=== PATIENT | male | born 1945 | race Caucasian/White ===

== ENCOUNTER → 2017-02-17 | Outpatient (CLI) | payer OTHER, MEDICARE | LOC: LAB 15:59 | PROVIDERS: ATTEND Radiology Radiation Oncology | DX: Z85.46 Personal history of malignant neoplasm of prostate (principal) | CPT/HCPCS: 36415; 84153 ==

== ENCOUNTER → 2017-02-23 | Outpatient (CLI) | payer OTHER, MEDICARE | LOC: MMPC 09:00 | PROVIDERS: ATTEND Family Medicine | DX: I10 Essential (primary) hypertension (principal); I25.10 Atherosclerotic heart disease of native coronary artery without angina pectoris; G47.00 Insomnia, unspecified; J30.1 Allergic rhinitis due to pollen; G47.33 Obstructive sleep apnea (adult) (pediatric) | CPT/HCPCS: 99214; G0463 ==

== ENCOUNTER → 2017-06-10 | Outpatient (CLI) | payer OTHER, MEDICARE ==
--- NOTE | 2017-06-10 11:47 | DI ---
XR KNEE CMPT 4 OR MORE VWS,06/10/2017 9:18 AM: Clinical History: Right knee pain Previous Exam: None at this facility. Findings: AP standing, weightbearing, sunrise views of both knees are obtained as well as a lateral view of the right knee, and demonstrate mild loss of joint space within the medial compartments bilaterally. The surrounding soft tissues are unremarkable. There is some mild peripheral vascular disease in the reg ion of the superficial femoral artery. There is no evidence of knee joint effusion. Impression: Mild early degenerative osteoarthritis which appears to be symmetric.
== END ==
LOC: RAD 09:13
PROVIDERS: ATTEND Orthopaedic Surgery
DX: M25.561 Pain in right knee (principal); M17.11 Unilateral primary osteoarthritis, right knee
CPT/HCPCS: 73564

== ENCOUNTER 2018-07-17 10:15 | Inpatient (IN) ==
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
[2018-07-17] MEDS ORDERED: Sodium Chloride 0.9% 1,000 ML PRIMARY IV ONE (10:27)
[2018-07-17] MEDS ORDERED: NITROGLYCERIN 0.4 MG SL TAB (BOTTLE OF 3) SL ONE (10:27)
[2018-07-17] MEDS ORDERED: MORPHINE SULFATE 4 MG/1 ML IVP ONE (10:27)
[2018-07-17] MEDS ORDERED: ONDANSETRON 4 MG/2 ML VIAL IVP ONE (10:27)
--- NOTE | 2018-07-17 10:29 | EKG ---
[address] [address] Measurements Intervals [place] Rate: 82 P: 28 TN: 174 QRS: -11 QRSD: 83 T: 12 QT: 361 QTc: 399 Interpretive Statements SINUS RHYTHM Compared to ECG 03/11/2018 15:42:26 No significant changes Electronically Signed On 07-18-18 15:05:13 MDT by Dung Bradford [email or web address]
[2018-07-17 10:41] LABS: BASOPHILS % (AUTO) 0.8 % (0-1); EOSINOPHILS # (AUTO) 0.39 10*3/UL; EOSINOPHILS % (AUTO) 3.3 % (0-8); Hematocrit [HCT] 47.3 % (42.0-52.0); Hemoglobin [HGB] 16.7 g/dL (14.0-18.0); LYMPHOCYTES # (AUTO) 4.12 10*3/uL; MEAN CORPUSCULAR HEMOGLOBIN 32.1 PG (27-31); MEAN CORPUSCULAR HGB CONC 35.3 g/dL (33-37); MEAN PLATELET VOLUME 11.2 FL (7.4-12.2); MONOCYTES # (AUTO) 1.33 10*3/UL (0.3-0.8); MONOCYTES % (AUTO) 11.3 % (5-15); NEUTROPHILS # (AUTO) 5.83 10*3/UL; NEUTROPHILS % (AUTO) 49.4 % (50-80)
[2018-07-17 10:53] LABS: BLOOD UREA NITROGEN 24 mg/dL (7-22); SERUM ALBUMIN 3.9 g/dL (3.5-4.8)
[2018-07-17 11:01] LABS: PLATELET MORPHOLOGY COMMENT NORMAL MORPHOLOGY (NORM); RBC MORPHOLOGY COMMENT NORMAL MORPHOLOGY (NORM); WBC MORPHOLOGY COMMENT NORMAL MORPHOLOGY (NORM)
[2018-07-17] MEDS ORDERED: ASPIRIN 81 MG (BABY) CHEWABLE TABLET PO ONE (11:02)
--- NOTE | 2018-07-17 11:21 | DI ---
EXAM: XR Chest, 1 View CLINICAL HISTORY: Chest pain, shortness of breath TECHNIQUE: Frontal view of the chest. COMPARISON: Chest x-ray dated 03/11/18 FINDINGS: Lungs: Mildly increased interstitial markings. The lungs are otherwise clear without focal consolidation. Pleural space: Unremarkable. The costophrenic angles are sharp. No visible pneumothorax. Heart: Cardiac silhouette appears enlarged, however may be magnified by AP technique. Mediastinum: Unremarkable. Bones/joints: Unremarkable. IMPRESSION: Mildly increased interstitial markings. This may be related to mild pulmonary vascular congestion versus a mild viral/interstitial pneumonitis.
[2018-07-17] MEDS ORDERED: LIDOCAINE W/ SODIUM BICARB 0.5 ML SYR SUBD PRN (12:30)
[2018-07-17] MEDS ORDERED: NITROGLYCERIN 0.4 MG SL TAB (BOTTLE OF 3) SL PRN (12:30)
[2018-07-17] MEDS ORDERED: CALCIUM CARBONATE 500 MG (TUMS) CHEWABLE TABLET PO PRN (12:30)
[2018-07-17 12:48] LABS: URINE SAMPLE TYPE CLEAN CATCH URINE; URINE SPECIFIC GRAVITY - MAN 1.025
[2018-07-17 12:49] LABS: AMPHETAMINE SCREEN NEGATIVE (NEG); CANNABINOID SCREEN,URINE NEGATIVE (NEG); COCAINE SCREEN NEGATIVE (NEG); METHADONE URINE SCREEN NEGATIVE (NEG); METHAMPHETAMINES SCREEN,URINE NEGATIVE (NEG); OPIATE SCREEN,URINE POSITIVE (NEG)
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
[2018-07-17] MEDS ORDERED: FUROSEMIDE 10 MG/1 ML - 4 ML IVP ONE (14:19)
[2018-07-17] MEDS ORDERED: POTASSIUM CHLORIDE 20 MEQ TAB PO ONE (14:19)
[2018-07-17] MEDS: ENOXAPARIN SODIUM 120 MG/0.8 ML SYRINGE SUBCUT SCH ×2 (14:53→22:29)
[2018-07-17] MEDS ORDERED: ZOLPIDEM 10 MG TABLET PO SCH (21:00)
[2018-07-17] MEDS ORDERED: ATORVASTATIN 20 MG TABLET PO SCH (21:00)
[2018-07-18 05:19] LABS: BLOOD UREA NITROGEN 26 mg/dL (7-22); BUN/CREATININE RATIO 23.63 (6-20); CHOL/HDL RATIO 3.37 RATIO (0-4.0); SERUM CHOLESTEROL 98 mg/dL (120-200)
[2018-07-18] MEDS: ENOXAPARIN SODIUM 120 MG/0.8 ML SYRINGE SUBCUT SCH (08:05)
[2018-07-18] MEDS ORDERED: ENOXAPARIN SODIUM 40 MG/0.4 ML SYRINGE SUBCUT SCH (09:00)
[2018-07-18] MEDS ORDERED: Meloxicam Tab 7.5 MG TABLET PO SCH (09:00)
[2018-07-18] MEDS ORDERED: LISINOPRIL 20 MG TABLET PO SCH (09:00)
[2018-07-18] MEDS ORDERED: LORATADINE 10 MG TABLET PO SCH (09:00)
[2018-07-18] MEDS ORDERED: HYDROCHLOROTHIAZIDE 12.5 MG CAPSULE PO SCH (09:00)
[2018-07-18] MEDS ORDERED: AmLODIPine Tab 5 MG TABLET PO SCH (09:00)
[2018-07-18] MEDS ORDERED: POTASSIUM CHLORIDE 20 MEQ TAB PO SCH (09:00)
[2018-07-18] MEDS ORDERED: ASPIRIN 81 MG (BABY) CHEWABLE TABLET PO SCH (09:00)
[2018-07-18] MEDS ORDERED: KETOROLAC 15 MG/1 ML VIAL IVP ONE (11:54)
--- NOTE | 2018-07-18 12:12 | STRESSTEST ---
[facility] Interpretive Statements This is a pleasant 73 YO male that presented with two weeks chest pain and shortness of breath with activities. ruled out for KS. Alisha scan stress test done. resting images yesterday. had shortness of breath with stress portion today. resing EKG is NSR. no significant morphology changes with stress portion. risk factors include known CAD with Hx of stent, HTN, and high cholesterol. no DM, no family history of heart disease. Plan: stress images today and await radiology read on films. [email or web address]
[2018-07-18 16:46] VITALS: BP 126/66; RESP 16; TEMP 97.1; O2SAT 96
--- NOTE | 2018-07-18 17:04 | DI ---
2 DAY LEXISCAN STRESS & REST MYOCARDIAL PERFUSION SCANS, 07/17/2018 12:30 PM : Clinical History: Chest pain Previous Exam: None at this facility. The patient was stressed by Dr. John Armando The standard Lexiscan protocol was used. Please see the Doctor's report. At the designated time, 35 m Ci of 99Tc-sestimibi was injected IV. Stress gated tomograms were acquired within one hour of the inj ection. For the resting scans, 35.1 mCi was injected IV and resting gated tomograms were acquired in similar fashion. Stress scans were performed on July 18, 2018; the resting scans were performed on July 17. Quantitative and qualitative analyses were performed. Quantitative analysis was performed with the IN [facility] [id number] protocols. Very low dose limited CT scans of the chest are o btained through the level of the heart for attenuation correction of the gated stress and rest cardia c SPECT data. Non-attenuated and attenuated scans were processed for review, and the attenuated scans were used for final interpretation of this study. Review of the raw data images and personnel quality assurance auditor files indicate that these series of examinations ar e of excellent quality. Stress and rest left ventricular chamber sizes are normal. Stress and rest LV EF are 76 % and 77 %, respectively. There is no area of reversibility. There is normal wall motion and normal ejection fraction. Transient ischemic dilatation ratio is 1.1, with a normal range up to 1.22 for patients stressed with the Zachary protocol and up to 1.33 for patients stressed with the Lexiscan protocol. The very low dose CT scans through the level of the heart show no coronary artery calcifications. The re is no adenopathy or evidence of lung nodules. Readin. No evidence of ischemia. 2. Normal ejection fraction.
--- NOTE | 2018-07-18 18:00 | DCSUMMARY ---
Hospitalization Summary Admit Date: 07/17/2018 Discharge Date: 07/18/18 Primary Diagnosis:: diastolic congestive heart failure Secondary Diagnosis:: Chest pain, unclear etiology, suspect diastolic dysfunction, unstable angina unlikely given negative stress test. Hypertension Hypercholesterolemia History of cardiac stent Hospital Course: This is a very pleasant 73-year-old male who has come in with about a two-week history of chest pains with left arm radiation and shortness of breath. He had a known history of coronary artery disease with a prior history of a stent placed. He was admitted after nitroglycerin relieved his pain, he ruled out for myocardial infarction. We did do a stress test and I spoke with the director compensation at [facility] [place] as the patient was scheduled for elective heart catheterization sometime later this month. They felt a stress test would be most appropriate as well. They suspected based on the history that this could be developing or underlying diastolic dysfunction. A stress test was negative. We did a Lexiscan cardiac stress test protocol. Again, it was negative for reversible defects. The patient's d-dimer was negative giving him extremely low chance of pulmonary emboli, I offered a CT scan to look, but based on the low risk, the patient felt that it would be best to wait out that study. I did suggest that we have the patient visited his director compensation for an outpatient echocardiogram to look for diastolic dysfunction and also screen for pulmonary hypertension. Also think we should do pulmonary function testing and I have ordered that. We'll have those results go to his primary care provider, Dr. Joyce. The patient did have a headache here I think from the nitroglycerin, and I gave him some Toradol and that relieved the headache. This evening, no completes of chest pain, shortness breath, nausea or vomiting. He is ready to go home. I did examine him earlier today. I'm going to hold off on additional diuretic and telemetry have a little more information from echocardiogram and other studies. The patient's symptoms initially were highly suspicious of unstable angina given his cardiac history and the nature of his complaints. In particular, the patient described them as somewhat similar to his prior heart attack and cardiac stent placement. Given that, we treated him with Lovenox, hold off on the beta coco to get the stress test, and aspirin. Because of the nature of unstable angina, I felt an inpatient evaluation was warranted. Luckily, we were wrong about unstable angina by the time the stress test was done. I did describe to the patient that there is a certain collection of the stress test that do have false negative results, but the rate is fairly low. I did tell the patient that he could still elect to do outpatient heart catheterization, but I would like him to discuss that in the office prior to doing the procedure. With Dr. Doherty. Him one last note, I did note the chest x-ray reading. 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 White blood cell count was minimally elevated, but I do not think it is indicative of infection. No fevers, cough, or chills were noted. Assessment and Plan: 1. As per discharge assessments noted 2. Disposition: 3. Condition on discharge, stable and improved. 4. Diet: regular diet 5. Activities: resume normal activities 6. Follow-Up: 1. Dr. Joyce in 7-10 days 2. [employer] in the next week 7. Medications at the Time of Discharge: Home Medications 3 Medication Instructions Recorded Confirmed Type Aspirin 81 mg PO DAILY 03/31/14 07/17/18 History atorvastatin 40 mg tablet 40 mg PO QD #90 tab 03/11/18 07/17/18 Rx cetirizine 10 mg tablet 10 mg PO QDAY #90 tab 03/11/18 07/17/18 Rx lisinopril 20 1 tab PO QD #90 tab 03/11/18 07/17/18 Rx mg-hydrochlorothiazide 12.5 mg tablet meloxicam 15 mg tablet 15 mg PO QDAY #90 tab 03/11/18 07/17/18 Rx amlodipine 5 mg tablet 5 mg PO DAILY #90 tab MDD 1 03/22/18 07/17/18 Rx zolpidem 10 mg tablet 10 mg PO QHS #30 tab 07/07/18 07/17/18 Rx 8. Time, care, counseling and coordination of care for this discharge is greater than 30 minutes. Exam - Vitals Vital Signs: Vital Signs Temperature 97.1 F Temperature Source Temporal Artery Scan Pulse Rate [Apical] 65 Pulse Rate [Pulse Oximeter] 68 Pulse Rate 72 Respiratory Rate 16 Blood Pressure [Left Arm] 126/66 Blood Pressure 111/79 Pulse Ox 96 Oxygen Flow Rate 1 Oxygen Delivery Method Nasal Cannula Height 5 ft 10 in Weight 241 lb 9.6 oz - General General Appearance: No Acute Distress, Cooperative - Eye Eye Exam: POSITIVE: No Scleral Icterus - Respiratory Respiratory Exam: POSITIVE: Clear to Auscultation - Bilaterally, Breathing Non Labored - Cardiovascular Cardiovascular Exam: POSITIVE: RRR, No Murmur, No Clicks, No Gallops, No Rubs, No JVD - Extremities Extremities Exam: POSITIVE: No Clubbing Present, No Cyanosis Present Additional Extremities Exam Details: Trace edema. Improved. - Neurological Neurological Exam: POSITIVE: Alert, Oriented x 3, No Facial Droop, Speech Intact / Clear, Moves All Extremities Equally Data Peritnent Studies: Laboratory Results 07/17/18 07/18/18 07/18/18 Range/Units 22:33 04:03 04:03 Sodium 139 (135-145) meq/L Potassium 3.8 (3.8-5.2) meq/L Chloride 107 (98-112) meq/L Carbon Dioxide 26 (23-33) meq/L Anion Gap 6 (5-20) BUN 26 H (7-22) mg/dL Creatinine 1.1 (0.70-1.50) mg/dL Estimated GFR Not Reportable BUN/Creatinine Ratio 23.63 H (6-20) Glucose 94 (78-110) mg/dL Calculated Osmolality 292.0 (267-292) mOsm/kg Calcium 8.3 L (8.7-10.7) mg/dL Troponin I < 0.012 < 0.012 (< 0.040) ng/mL Triglycerides 116 (44-200) mg/dL Cholesterol 98 L (120-200) mg/dL LDL Cholesterol, Calc 45.800 mg/dL VLDL Cholesterol 23 (0-40) mg/dL HDL Cholesterol 29 L (40-150) mg/dL Cholesterol/HDL Ratio 3.37 (0-4.0) RATIO 07/17/18 07/17/18 07/17/18 10:27 10:27 10:27 WBC 11.80 H Hgb 16.7 Hct 47.3 Plt Count 356 H PT 10.5 INR 1.02 D-Dimer 0.31 Troponin I NT-Pro-B Natriuret Pep 71.5 TSH Free T4 07/17/18 07/17/18 07/17/18 10:27 16:30 22:33 WBC Hgb Hct Plt Count PT INR D-Dimer Troponin I < 0.012 < 0.012 NT-Pro-B Natriuret Pep TSH 1.47 Free T4 1.15 07/18/18 04:03 WBC Hgb Hct Plt Count PT INR D-Dimer Troponin I < 0.012 NT-Pro-B Natriuret Pep TSH Free T4 Procedures: [address] [facility] [place] [address] PH: DD: [phone] FAX: [phone] ~DIAGNOSTIC IMAGING REPORT~ Patient: Donavon Oconnor : 1945 Sex: M Age: 73 Exam Name: VT Myocardial Multi-Spect Exam Date: 07/17/18 Report # : [id number] CPT Code: 98563 EMR/MR #: [id number] Ordering: ROLAN HART Admiting: ROLAN HART DO Primary: Cosme Masterson MD Attending: ROLAN HART DO Signed 2 DAY LEXISCAN STRESS & REST MYOCARDIAL PERFUSION SCANS, 07/17/2018 12:30 PM : Clinical History: Chest pain Previous Exam: None at this facility. The patient was stressed by Dr. Rolan Armando The standard Lexiscan protocol was used. Please see the Doctor's report. At the designated time, 35 mCi of 99Tc-sestimibi was injected IV. Stress gated tomograms were acquired within one hour of the injection. For the resting scans, 35.1 mCi was injected IV and resting gated tomograms were acquired in similar fashion. Stress scans were performed on July 18, 2018; the resting scans were performed on July 17, 2018. Quantitative and qualitative analyses were performed. Quantitative analysis was performed with the [facility] [id number] protocols. Very low dose limited CT scans of the chest are obtained through the level of the heart for attenuation correction of the gated stress and rest cardiac SPECT data. Non-attenuated and attenuated scans were processed for review, and the attenuated scans were used for final interpretation of this study. Review of the raw data images and senior supplier quality engineer files indicate that these series of examinations are of excellent quality. Stress and rest left ventricular chamber sizes are normal. Stress and rest LVEF are 76 % and 77 %, respectively. There is no area of reversibility. There is normal wall motion and normal ejection fraction. Transient ischemic dilatation ratio is 1.1, with a normal range up to 1.22 for patients stressed with the Zachary protocol and up to 1.33 for patients stressed with the Lexiscan protocol. The very low dose CT scans through the level of the heart show no coronary artery calcifications. There is no adenopathy or evidence of lung nodules. Readin. No evidence of ischemia. 2. Normal ejection fraction. Dictated By: 07/18/18 1655 TRACEY MEJIA MD. Signed By: 07/18/18 1704 TRACEY MEJIA MD. [address] [place] [address] PH: DD: [phone] FAX: [phone] ~DIAGNOSTIC IMAGING REPORT~ Patient: Donavon Oconnor : 1945 Sex: M Age: 73 Exam Name: XR CXR 1VW Exam Date: 07/17/18 Report # : [id number] CPT Code: 93329 EMR/MR #: [id number] Ordering: Paddy Alejandro Admiting: Primary: Cosme Masterson MD Attending: Signed EXAM: XR Chest, 1 View CLINICAL HISTORY: Chest pain, shortness of breath TECHNIQUE: Frontal view of the chest. COMPARISON: Chest x-ray dated 03/11/18 FINDINGS: Lungs: Mildly increased interstitial markings. The lungs are otherwise clear without focal consolidation. Pleural space: Unremarkable. The costophrenic angles are sharp. No visible pneumothorax. Heart: Cardiac silhouette appears enlarged, however may be magnified by AP technique. Mediastinum: Unremarkable. Bones/joints: Unremarkable. IMPRESSION: Mildly increased interstitial markings. This may be related to mild pulmonary vascular congestion versus a mild viral/interstitial pneumonitis. Dictated By: Ramesh Dickson MD., PHD. Signed By: 07/17/18 1121 Ramesh Dickson MD., PHD. Patient Problems - Patient Problem List (1) Diastolic dysfunction Current Visit: Yes Status: Acute Code(s): I51.9 - Heart disease, unspecified Category: Medical (2) Unstable angina Current Visit: Yes Status: Ruled-out Code(s): I20.0 - Unstable angina Category: Medical (3) Edema Current Visit: Yes Status: Acute Code(s): R60.9 - Edema, unspecified Qualifiers: Edema type: localized Qualified Code(s): R60.0 - Localized edema Category: Medical (4) Hypertension Current Visit: No Status: Chronic Onset Date: 02/21/15 Code(s): I10 - Essential (primary) hypertension Category: Medical (5) Obstructive sleep apnea Current Visit: No Status: Chronic Onset Date: 11/13/15 Code(s): G47.33 - Obstructive sleep apnea (adult) (pediatric) Category: Medical (6) Coronary artery disease Current Visit: Yes Status: Acute Code(s): I25.10 - Atherosclerotic heart disease of [place] coronary artery without angina pectoris Qualifiers: Coronary Disease-Associated Artery/Lesion type: [place] artery [place] vs. transplanted heart: [place] heart Associated angina: with unstable angina Qualified Code(s): I25.110 - Atherosclerotic heart disease of [place] coronary artery with unstable angina pectoris Category: Medical (7) Hypercholesterolemia Current Visit: Yes Status: Acute Code(s): E78.00 - Pure hypercholesterolemia , unspecified Category: Medical
== END 2018-07-18 18:30 | disposition short-term general hospital (02) | DRG 292 ==
LOC: ER 10:15 → MED/SURG 10:15
PROVIDERS: ADMIT Family Medicine; ATTEND Family Medicine